=== PATIENT | female | born 1950 | race Hispanic/Latino ===

== ENCOUNTER → 2025-07-14 | Outpatient (CLI) | payer MEDICARE, OTHER ==
--- NOTE | 2025-07-17 10:41 | HMCIMG ---
BILATERAL BREAST ULTRASOUND: Findings: Real-time examination of the both breasts demonstrates homogeneous echotexture throughout both the breasts without evidence of focal solid or cystic masses. There is a benign-appearing axillary lymph node. IMPRESSION: No mass or cyst seen. FINAL ASSESSMENT: ACR: BI-RAD- 2. Benign Finding.
== END | disposition home or self-care (01) ==
LOC: RAH 09:15
PROVIDERS: ATTEND Internal Medicine Medical Oncology
DX: D05.11 Intraductal carcinoma in situ of right breast (principal)
CPT/HCPCS: 76641